=== PATIENT | male | born 1960 | race Caucasian/White ===

== ENCOUNTER 2016-07-25 13:25 | Inpatient (IN) | payer BC, MEDICARE ==
[~2016-07-25] VITALS: Ht 190.5 cm; Wt 120.2 kg
[2016-07-25 08:45] VITALS: BP_SYST 151; RESP 20; TEMP 97.3
[2016-07-25 14:18] VITALS: Ht 190.5 cm; Wt 120.2 kg
[2016-07-25] MEDS ORDERED: SODIUM CHLORIDE 0.9% IV SCH (14:20)
[2016-07-25] MEDS ORDERED: [UNRECOGNIZED DRUG - OTHER] IV SCH (14:20)
[2016-07-25] MEDS ORDERED: GADAVIST 10 ML SYR (HMH) IV ONE (15:26)
[2016-07-25] MEDS: SODIUM CHLORIDE 0.9% IV SCH (17:09)
[2016-07-25] MEDS: [UNRECOGNIZED DRUG - OTHER] IV SCH (17:09)
[2016-07-25 17:13] VITALS: BP_SYST 133; RESP 18; TEMP 97.6
[2016-07-25] MEDS: amLODIPine 5 MG TAB PO SCH (17:52)
[2016-07-25 19:30] VITALS: BP_SYST 140; RESP 20; TEMP 97.3
[2016-07-25] MEDS: TOPIRAMATE 100 MG TAB PO SCH (21:00)
[2016-07-26] VITALS: BP_SYST 127; RESP 18; TEMP 97.6
[2016-07-26 03:49] VITALS: BP_SYST 126; RESP 20; TEMP 97.2
[2016-07-26 08:45] VITALS: BP_SYST 151; RESP 20; TEMP 97.3
[2016-07-26] MEDS: [UNRECOGNIZED DRUG - OTHER] IV SCH (09:26)
[2016-07-26] MEDS: SODIUM CHLORIDE 0.9% IV SCH (09:26)
[2016-07-26] MEDS: TOPIRAMATE 100 MG TAB PO SCH ×2 (09:26→21:18)
[2016-07-26] MEDS: amLODIPine 5 MG TAB PO SCH (09:27)
[2016-07-26] MEDS: TAMSULOSIN 0.4 MG CAP PO SCH (09:27)
[2016-07-26 12:52] VITALS: BP_SYST 148; RESP 20; TEMP 97.4
[2016-07-26 15:45] VITALS: BP_SYST 134; RESP 22; TEMP 97.4
[2016-07-26] MEDS: ACETAMINOPHEN 325 MG TAB PO PRN ×2 (17:58→23:50)
[2016-07-26 20:13] VITALS: BP_SYST 132; RESP 18; TEMP 97.3
[2016-07-27 00:30] VITALS: BP_SYST 117; RESP 18; TEMP 97.6
[2016-07-27 04:49] VITALS: BP_SYST 125; RESP 18; TEMP 97.4
[2016-07-27 07:05] VITALS: BP_SYST 133; RESP 16; TEMP 97.5
[2016-07-27] MEDS: TAMSULOSIN 0.4 MG CAP PO SCH (08:57)
[2016-07-27] MEDS: SODIUM CHLORIDE 0.9% IV SCH (08:57)
[2016-07-27] MEDS: amLODIPine 5 MG TAB PO SCH (08:57)
[2016-07-27] MEDS: TOPIRAMATE 100 MG TAB PO SCH ×2 (08:57→20:41)
[2016-07-27] MEDS: [UNRECOGNIZED DRUG - OTHER] IV SCH (08:57)
[2016-07-27] MEDS: ACETAMINOPHEN 325 MG TAB PO PRN (15:32)
[2016-07-27 15:43] VITALS: BP_SYST 130; RESP 18
[2016-07-27 19:30] VITALS: BP_SYST 141; RESP 18; TEMP 97.5
[2016-07-27] MEDS: SODIUM CHLORIDE 0.9% FLUSH BAG 500 ML IV SCH (20:00)
[2016-07-27 23:45] VITALS: BP_SYST 131; RESP 20; TEMP 97.2
[2016-07-28 03:07] VITALS: BP_SYST 136; RESP 20; TEMP 97.5
[2016-07-28] MEDS: SODIUM CHLORIDE 0.9% FLUSH BAG 500 ML IV SCH (06:00)
[2016-07-28 08:00] VITALS: BP_SYST 140; RESP 20; TEMP 97.5
[2016-07-28] MEDS: SODIUM CHLORIDE 0.9% IV SCH (08:54)
[2016-07-28] MEDS: [UNRECOGNIZED DRUG - OTHER] IV SCH (08:54)
[2016-07-28] MEDS: TOPIRAMATE 100 MG TAB PO SCH ×2 (08:55→20:25)
[2016-07-28] MEDS: amLODIPine 5 MG TAB PO SCH (08:55)
[2016-07-28] MEDS: TAMSULOSIN 0.4 MG CAP PO SCH (08:55)
[2016-07-28] MEDS ORDERED: [UNRECOGNIZED DRUG - OTHER] IV SCH (09:00)
[2016-07-28] MEDS ORDERED: SODIUM CHLORIDE 0.9% IV SCH (09:00)
[2016-07-28 20:12] VITALS: BP_SYST 129; RESP 18; TEMP 97.5
[2016-07-28] MEDS: ACETAMINOPHEN 325 MG TAB PO PRN (20:26)
[2016-07-28 23:56] VITALS: BP_SYST 116; TEMP 97.2
[2016-07-29] MEDS: SODIUM CHLORIDE 0.9% FLUSH BAG 500 ML IV SCH (07:06)
[2016-07-29 07:24] VITALS: BP_SYST 146; RESP 20; TEMP 97.6
[2016-07-29] MEDS: TAMSULOSIN 0.4 MG CAP PO SCH (09:52)
[2016-07-29] MEDS: SODIUM CHLORIDE 0.9% IV SCH (09:52)
[2016-07-29] MEDS: TOPIRAMATE 100 MG TAB PO SCH ×2 (09:52→20:16)
[2016-07-29] MEDS: amLODIPine 5 MG TAB PO SCH (09:52)
[2016-07-29] MEDS: [UNRECOGNIZED DRUG - OTHER] IV SCH (09:52)
[2016-07-29 19:54] VITALS: BP_SYST 120; RESP 18; TEMP 97.4
[2016-07-29] MEDS: ACETAMINOPHEN 325 MG TAB PO PRN (20:18)
[2016-07-29 23:53] VITALS: BP_SYST 122; RESP 18; TEMP 98.2
[2016-07-30 03:51] VITALS: BP_SYST 133; RESP 20; TEMP 98.2
[2016-07-30] MEDS: SODIUM CHLORIDE 0.9% FLUSH BAG 500 ML IV SCH (05:34)
[2016-07-30 07:55] VITALS: BP_SYST 136; RESP 18; TEMP 97.6
[2016-07-30] MEDS ORDERED: MISSING DOSE XX ONE (08:15)
[2016-07-30] MEDS: [UNRECOGNIZED DRUG - OTHER] IV SCH (09:00)
[2016-07-30] MEDS: SODIUM CHLORIDE 0.9% IV SCH (09:00)
[2016-07-30] MEDS: TOPIRAMATE 100 MG TAB PO SCH ×2 (09:01→20:00)
[2016-07-30] MEDS: TAMSULOSIN 0.4 MG CAP PO SCH (09:01)
[2016-07-30] MEDS: amLODIPine 5 MG TAB PO SCH (09:01)
[2016-07-30 12:45] VITALS: BP_SYST 140; RESP 18; TEMP 98.1
[2016-07-30 15:50] VITALS: BP_SYST 145; RESP 18; TEMP 97.9
[2016-07-30 19:26] VITALS: BP_SYST 145; RESP 16; TEMP 97.4
[2016-07-30] MEDS: ACETAMINOPHEN 325 MG TAB PO PRN (20:00)
[2016-07-30 23:07] VITALS: BP_SYST 135; RESP 16; TEMP 97.4
[2016-07-31] MEDS: SODIUM CHLORIDE 0.9% FLUSH BAG 500 ML IV SCH (06:05)
[2016-07-31] MEDS ORDERED: MISSING DOSE XX ONE (08:25)
[2016-07-31 08:41] VITALS: BP_SYST 140; RESP 18; TEMP 97.4
[2016-07-31] MEDS: [UNRECOGNIZED DRUG - OTHER] IV SCH (08:55)
[2016-07-31] MEDS: SODIUM CHLORIDE 0.9% IV SCH (08:55)
[2016-07-31] MEDS: amLODIPine 5 MG TAB PO SCH (08:56)
[2016-07-31] MEDS: TAMSULOSIN 0.4 MG CAP PO SCH (08:56)
[2016-07-31] MEDS: TOPIRAMATE 100 MG TAB PO SCH ×2 (08:56→20:23)
[2016-07-31 12:26] VITALS: BP_SYST 148; RESP 18; TEMP 97.5
[2016-07-31 15:03] VITALS: BP_SYST 123; RESP 16; TEMP 97.1
[2016-07-31 19:44] VITALS: BP_SYST 153; RESP 20; TEMP 97.4
[2016-07-31] MEDS ORDERED: amLODIPine 5 MG TAB PO ONE (19:55)
[2016-07-31] MEDS: ACETAMINOPHEN 325 MG TAB PO PRN (20:24)
[2016-08-01 00:05] VITALS: BP_SYST 131; RESP 16; TEMP 97.5
[2016-08-01 04:34] VITALS: BP_SYST 126; RESP 12; TEMP 97.2
[2016-08-01] MEDS: SODIUM CHLORIDE 0.9% FLUSH BAG 500 ML IV SCH (06:17)
[2016-08-01] MEDS ORDERED: [UNRECOGNIZED DRUG - OTHER] IV SCH (09:00)
[2016-08-01] MEDS ORDERED: SODIUM CHLORIDE 0.9% IV SCH (09:00)
[2016-08-01] MEDS: TAMSULOSIN 0.4 MG CAP PO SCH (09:02)
[2016-08-01] MEDS: TOPIRAMATE 100 MG TAB PO SCH ×2 (09:03→19:32)
[2016-08-01] MEDS: amLODIPine 10 MG TAB PO SCH (09:03)
[2016-08-01] MEDS: [UNRECOGNIZED DRUG - OTHER] IV SCH (09:04)
[2016-08-01] MEDS: SODIUM CHLORIDE 0.9% IV SCH (09:04)
[2016-08-01 09:05] VITALS: BP_SYST 142; RESP 18; TEMP 97.7
[2016-08-01 12:38] VITALS: BP_SYST 132; RESP 18; TEMP 97.7
[2016-08-01 16:40] VITALS: BP_SYST 145; RESP 18; TEMP 97.9
[2016-08-01 18:57] VITALS: BP_SYST 136; RESP 18; TEMP 98
[2016-08-02 03:49] VITALS: BP_SYST 112; RESP 18; TEMP 98
[2016-08-02] MEDS: SODIUM CHLORIDE 0.9% FLUSH BAG 500 ML IV SCH (05:35)
[2016-08-02 07:04] VITALS: BP_SYST 140; RESP 18; TEMP 97.6
[2016-08-02] MEDS: TAMSULOSIN 0.4 MG CAP PO SCH (08:57)
[2016-08-02] MEDS: [UNRECOGNIZED DRUG - OTHER] IV SCH (08:57)
[2016-08-02] MEDS: SODIUM CHLORIDE 0.9% IV SCH (08:57)
[2016-08-02] MEDS: TOPIRAMATE 100 MG TAB PO SCH ×2 (08:57→19:55)
[2016-08-02] MEDS: amLODIPine 10 MG TAB PO SCH (08:57)
[2016-08-02] MEDS ORDERED: Flu Vaccine Quadrivalent 60 MCG/0.5 ML IM.VACC ONE (11:35)
[2016-08-02] MEDS ORDERED: PNEUMO VAC 25 MCG/0.5 ML VL IM.VACC ONE (11:35)
[2016-08-02 11:55] VITALS: BP_SYST 147; RESP 18
[2016-08-02 16:21] VITALS: BP_SYST 147; RESP 18; TEMP 97.9
[2016-08-02 19:12] VITALS: BP_SYST 133; RESP 18; TEMP 97.5
[2016-08-02] MEDS: SOD CHL NASAL SPR 45ML NARE EACH SCH (19:55)
[2016-08-02 20:00] VITALS: BP_SYST 128; RESP 18; TEMP 98.6
[2016-08-02] MEDS: ACETAMINOPHEN 325 MG TAB PO PRN (22:30)
[2016-08-03] VITALS: BP_SYST 118; RESP 18; TEMP 98
[2016-08-03] MEDS: SODIUM CHLORIDE 0.9% FLUSH BAG 500 ML IV SCH (05:47)
[2016-08-03 07:22] VITALS: BP_SYST 104; BP_SYST 137; RESP 18; RESP 20; TEMP 97.5; TEMP 97.7
[2016-08-03] MEDS: SODIUM CHLORIDE 0.9% IV SCH (08:06)
[2016-08-03] MEDS: [UNRECOGNIZED DRUG - OTHER] IV SCH (08:06)
[2016-08-03] MEDS: SOD CHL NASAL SPR 45ML NARE EACH SCH ×4 (08:06→21:44)
[2016-08-03] MEDS: amLODIPine 10 MG TAB PO SCH (08:07)
[2016-08-03] MEDS: TOPIRAMATE 100 MG TAB PO SCH ×2 (08:07→21:44)
[2016-08-03] MEDS: TAMSULOSIN 0.4 MG CAP PO SCH (08:07)
[2016-08-03 11:20] VITALS: BP_SYST 130; RESP 20; TEMP 97.3
[2016-08-03 15:22] VITALS: BP_SYST 108; RESP 20; TEMP 97.2
[2016-08-03 20:46] VITALS: BP_SYST 133; RESP 18; TEMP 97.5
[2016-08-03] MEDS: ACETAMINOPHEN 325 MG TAB PO PRN (21:46)
[2016-08-04 01:04] VITALS: BP_SYST 116; RESP 18; TEMP 97.5
[2016-08-04 04:36] VITALS: BP_SYST 119; RESP 18; TEMP 97.2
[2016-08-04] MEDS: SODIUM CHLORIDE 0.9% FLUSH BAG 500 ML IV SCH (05:40)
[2016-08-04 07:00] VITALS: BP_SYST 135; RESP 18; TEMP 97.9
[2016-08-04] MEDS: SODIUM CHLORIDE 0.9% IV SCH (09:01)
[2016-08-04] MEDS: [UNRECOGNIZED DRUG - OTHER] IV SCH (09:01)
[2016-08-04] MEDS: SOD CHL NASAL SPR 45ML NARE EACH SCH ×4 (09:01→20:32)
[2016-08-04] MEDS: amLODIPine 10 MG TAB PO SCH (09:02)
[2016-08-04] MEDS: TOPIRAMATE 100 MG TAB PO SCH ×2 (09:02→20:31)
[2016-08-04] MEDS: TAMSULOSIN 0.4 MG CAP PO SCH (09:02)
[2016-08-04 11:00] VITALS: BP_SYST 130; RESP 18; TEMP 97.3
[2016-08-04 15:00] VITALS: BP_SYST 131; RESP 18; TEMP 98
[2016-08-04] MEDS: ACETAMINOPHEN 325 MG TAB PO PRN (20:32)
[2016-08-04 20:38] VITALS: BP_SYST 144; RESP 18; TEMP 97.4
[2016-08-05] VITALS: BP_SYST 116; RESP 18; TEMP 97.3
[2016-08-05 04:00] VITALS: BP_SYST 138; RESP 18; TEMP 97.6
[2016-08-05] MEDS: SODIUM CHLORIDE 0.9% FLUSH BAG 500 ML IV SCH (06:07)
[2016-08-05 07:25] VITALS: BP_SYST 143; RESP 20; TEMP 97.4
[2016-08-05] MEDS: [UNRECOGNIZED DRUG - OTHER] IV SCH (08:32)
[2016-08-05] MEDS: SODIUM CHLORIDE 0.9% IV SCH (08:32)
[2016-08-05] MEDS: TAMSULOSIN 0.4 MG CAP PO SCH (08:40)
[2016-08-05] MEDS: SOD CHL NASAL SPR 45ML NARE EACH SCH (08:40)
[2016-08-05] MEDS: amLODIPine 10 MG TAB PO SCH (08:40)
[2016-08-05] MEDS ORDERED: MISSING DOSE XX ONE (08:45)
[2016-08-05] MEDS ORDERED: SODIUM CHLORIDE 0.9% IV SCH (09:00)
[2016-08-05] MEDS ORDERED: [UNRECOGNIZED DRUG - OTHER] IV SCH (09:00)
[2016-08-05 10:30] VITALS: BP_SYST 143; RESP 20; TEMP 97.4
[2016-08-05 11:37] VITALS: BP_SYST 143; RESP 20; TEMP 97.4
[2016-08-05] MEDS: TOPIRAMATE 100 MG TAB PO SCH (11:51)
== END 2016-08-05 12:05 | disposition home or self-care (01) | DRG 60 ==
LOC: 3S 13:25 → EEVIPCON 13:25
PROVIDERS: ADMIT Specialist; ATTEND Specialist
DX: G35 Multiple sclerosis (principal); I10 Essential (primary) hypertension; R04.0 Epistaxis; Z86.73 Personal history of transient ischemic attack (TIA), and cerebral infarction without residual deficits
CPT/HCPCS: 36569; 70553; 76937; 80053; 85025; 85610; 85730; 90732; 95819